=== PATIENT | male | born 1945 | race African-American/Black ===

== ENCOUNTER 2018-11-29 11:12 | Inpatient (IN) | payer MEDICARE, OTHER ==
[~2018-11-29] VITALS: Ht 188 cm; Wt 81.2 kg
[2018-11-29 12:40] LABS: BASOPHILS % 0.9 % (0.0-2.0); EOSINOPHILS % 3.3 % (0.0-5.0); HEMATOCRIT. 45.4 % (42.0-52.0); HEMOGLOBIN. 15.1 g/dL (14.0-18.0); LYMPHOCYTES % 23.7 % (20.0-50.0); MEAN CORPUSCULAR HEMOGLOBIN 31.4 pg (28.0-32.0); MEAN CORPUSCULAR VOLUME 94.6 fL (80.0-94.0); MEAN PLATELET VOLUME 7.6 fl (7.4-10.4); MONOCYTES % 9.8 % (2.0-8.0); NEUTROPHILS % 62.3 % (40.0-76.0); PLATELET 274 x1000/uL (130-400); RED CELL DISTRIBUTION WIDTH 14.2 % (11.6-14.6)
[2018-11-29 12:46] LABS: CHLORIDE 107 mEq/L (98-107)
[2018-11-29 12:49] LABS: INR 2.9; PARTIAL THROMBOPLASTIN TIME 42.1 sec (23.4-31.0); PROTHROMBIN TIME 28.4 sec (9.6-11.0)
[2018-11-29 12:50] LABS: ETHANOL BLOOD < 10 mg/dL
[2018-11-29] MEDS ORDERED: ONDANSETRON HCL 4MG/2ML INJ IV PRN (13:30)
[2018-11-29] MEDS ORDERED: NA PHOS,M-B/NA PHOS,DI-BA ENEMA 118ML PR PRN (13:30)
[2018-11-29] MEDS ORDERED: IPRATROPIUM/ALBUTEROL 0.5-3(2.5)MG/3ML NEB INH PRN (13:30)
[2018-11-29] MEDS ORDERED: ENOXAPARIN 40MG/0.4ML SYR SUBCUT SCH (13:30)
[2018-11-29] MEDS ORDERED: GUAIFENESIN 200MG/10ML SUGAR FREE UDC PO PRN (13:30)
[2018-11-29] MEDS ORDERED: CLONIDINE 0.1MG TABLET PO PRN (13:30)
[2018-11-29] MEDS ORDERED: ACETAMINOPHEN 325MG TABLET PO PRN (13:30)
[2018-11-29] MEDS ORDERED: MAGNESIUM/ALUMINUM HYDROXIDE/SIMETHICONE 30ML UDC PO PRN (13:30)
[2018-11-29] MEDS ORDERED: DOCUSATE SODIUM 100MG CAPSULE PO PRN (13:30)
[2018-11-29 16:17] VITALS: BP 129/78
[2018-11-29 16:18] VITALS: BP 130/78
[2018-11-29] MEDS: SODIUM CHLORIDE 0.45% 1,000 ML IV SCH (17:07)
[2018-11-29 19:14] LABS: CHLORIDE 106 mEq/L (98-107)
[2018-11-29 20:00] VITALS: BP 150/77
[2018-11-30] VITALS: BP 111/65
[2018-11-30 04:00] VITALS: BP 95/56
[2018-11-30 06:36] LABS: BASOPHILS % 0.5 % (0.0-2.0); HEMOGLOBIN. 13.9 g/dL (14.0-18.0); MEAN CORPUSCULAR HEMOGLOBIN 31.8 pg (28.0-32.0); MEAN CORPUSCULAR VOLUME 93.7 fL (80.0-94.0); MEAN PLATELET VOLUME 7.6 fl (7.4-10.4); NEUTROPHILS % 47.5 % (40.0-76.0); PLATELET 251 x1000/uL (130-400); RED BLOOD CELL COUNT 4.37 mill/uL (4.7-6.1); RED CELL DISTRIBUTION WIDTH 13.8 % (11.6-14.6)
[2018-11-30 06:55] LABS: CLARITY URINE CLEAR (CLEAR); COLOR URINE YELLOW (YELLOW); KETONES URINE NEGATIVE (NEGATIVE); LEUKOCYTE ESTERASE URINE NEGATIVE (NEGATIVE); NITRITE URINE NEGATIVE (NEGATIVE); OCCULT BLOOD URINE NEGATIVE (NEGATIVE); PH URINE 5.5 (4.5-8.0); PROTEIN URINE NEGATIVE (NEGATIVE); SPECIFIC GRAVITY URINE 1.023 (1.005-1.030)
[2018-11-30 07:28] LABS: *BENZODIAZEPINES SCREEN URINE NEGATIVE (NEGATIVE); *COCAINE SCREEN URINE NEGATIVE (NEGATIVE)
[2018-11-30 07:29] LABS: *AMPHETAMINES SCREEN URINE NEGATIVE (NEGATIVE); *BARBITURATES SCREEN URINE NEGATIVE (NEGATIVE); CANNABINOID URINE SCREEN NEGATIVE (NEGATIVE); METHADONE URINE SCREEN NEGATIVE (NEGATIVE); OPIATES URINE SCREEN NEGATIVE (NEGATIVE); PHENCYCLIDINE URINE SCREEN NEGATIVE (NEGATIVE)
[2018-11-30 08:00] VITALS: BP 107/65
[2018-11-30 12:20] VITALS: BP 95/52
[2018-11-30 15:32] VITALS: BP 102/57
[2018-11-30 15:45] LABS: INR 3.3; PROTHROMBIN TIME 32.3 sec (9.6-11.0)
[2018-11-30] MEDS: SODIUM CHLORIDE 0.45% 1,000 ML IV SCH (18:05)
[2018-11-30 20:00] VITALS: BP 126/76
[2018-11-30] MEDS: LORAZEPAM 2MG/ML CPJ IV PRN (20:58)
[2018-12-01] VITALS: BP 137/75
[2018-12-01 04:00] VITALS: BP 110/50
[2018-12-01 07:12] LABS: BASOPHILS % 0.5 % (0.0-2.0); EOSINOPHILS % 6.9 % (0.0-5.0); HEMATOCRIT. 41.9 % (42.0-52.0); HEMOGLOBIN. 14.1 g/dL (14.0-18.0); LYMPHOCYTES % 27.9 % (20.0-50.0); MEAN CORPUSCULAR HEMOGLOBIN 31.5 pg (28.0-32.0); MEAN CORPUSCULAR VOLUME 93.8 fL (80.0-94.0); MEAN PLATELET VOLUME 7.6 fl (7.4-10.4); MONOCYTES % 12.7 % (2.0-8.0); PLATELET 230 x1000/uL (130-400); RED BLOOD CELL COUNT 4.47 mill/uL (4.7-6.1); RED CELL DISTRIBUTION WIDTH 13.7 % (11.6-14.6)
[2018-12-01 07:18] LABS: INR 2.9; PROTHROMBIN TIME 28.1 sec (9.6-11.0)
[2018-12-01 07:26] LABS: CHLORIDE 105 mEq/L (98-107)
[2018-12-01 08:00] VITALS: BP 146/81
[2018-12-01 09:27] LABS: T4 FREE 0.86 ng/dL (0.76-1.46)
[2018-12-01] MEDS ORDERED: DORZ10DR9 EACHEYE (11:27)
[2018-12-01] MEDS ORDERED: DONE5TAB33 PO (11:27)
[2018-12-01] MEDS ORDERED: CRES10 MT (11:27)
[2018-12-01] MEDS ORDERED: LATA7.5D EACHEYE (11:27)
[2018-12-01] MEDS ORDERED: MEMA10TA19 MT (11:27)
[2018-12-01] MEDS ORDERED: WARF-53 MT (11:27)
[2018-12-01 12:00] VITALS: BP 160/76
[2018-12-01 16:00] VITALS: BP_SYST 123; BP_SYST 160; BP_DIAS 76; BP_DIAS 79
[2018-12-01 17:20] LABS: CREATINE KINASE 134 IU/L (39-308)
[2018-12-01 17:21] LABS: CREATINE KINASE MB FRACTION 1.4 ng/mL (0.5-3.6)
[2018-12-01] MEDS ORDERED: IOHEXOL-350 100 ML BOTTLE ONE (18:44)
[2018-12-01] MEDS: SODIUM CHLORIDE 0.45% 1,000 ML IV SCH (19:24)
[2018-12-01 20:00] VITALS: BP 115/81
[2018-12-01] MEDS: LORAZEPAM 2MG/ML CPJ IV PRN (20:26)
[2018-12-02] VITALS (7 sets, daily range): BP systolic 105–135; BP diastolic 53–75
[2018-12-02 00:23] LABS: CREATINE KINASE 156 IU/L (39-308)
[2018-12-02 00:24] LABS: CREATINE KINASE MB FRACTION 1.3 ng/mL (0.5-3.6)
[2018-12-02 07:47] LABS: CREATINE KINASE 154 IU/L (39-308); CREATINE KINASE MB FRACTION 1.2 ng/mL (0.5-3.6)
[2018-12-02] MEDS ORDERED: MEDICATION NOT ON FORMULARY EA (Rosuvastatin Calcium (Crestor) 1 TAB) MT SCH (09:00)
[2018-12-02] MEDS ORDERED: DONEPEZIL HCL 5MG TABLET PO SCH (09:00)
[2018-12-02] MEDS ORDERED: DORZOLAM/TIMOLOL 2.23/0.68% OPHTH DROPS 10ML EACHEYE SCH (10:00)
[2018-12-02] MEDS: MEMANTINE HCL 5MG TABLET PO SCH ×2 (10:04→16:49)
[2018-12-02 13:14] LABS: INR 1.8; PROTHROMBIN TIME 18.3 sec (9.6-11.0)
[2018-12-02] MEDS: SODIUM CHLORIDE 0.45% 1,000 ML IV SCH (16:49)
[2018-12-02] MEDS ORDERED: WARFARIN SODIUM 2MG TABLET PO SCH (18:00)
[2018-12-02] MEDS ORDERED: LATANOPROST 0.005% OPHTH DROPS 2.5ML EACHEYE SCH (21:00)
[2018-12-02] MEDS ORDERED: ATORVASTATIN CALCIUM 20MG TABLET PO SCH (21:00)
== END 2018-12-02 19:30 | DRG 640 ==
LOC: ER 12:05 → 5WST 13:09 → EDBEDREQ 13:12 → CANRESERV 14:04 → ENRESERV 14:04 → 5WST 22:13
PROVIDERS: ADMIT Internal Medicine; ATTEND Internal Medicine
DX: E86.0 Dehydration (principal); G92 Toxic encephalopathy; D68.9 Coagulation defect, unspecified; E11.9 Type 2 diabetes mellitus without complications; E78.5 Hyperlipidemia, unspecified; F03.90 Unspecified dementia, unspecified severity, without behavioral disturbance, psychotic disturbance, mood disturbance, and anxiety; I10 Essential (primary) hypertension; Z59.0 Homelessness; Z79.01 Long term (current) use of anticoagulants; Z79.899 Other long term (current) drug therapy; Z87.891 Personal history of nicotine dependence
CPT/HCPCS: 36415; 71045; 71275; 73030; 80048; 80061; 80305; 80320; 82550; 82553; 83036; 83605; 83880; 84145; 84439; 84443; 84484; 85379; 93005; 93306; 93970; 99285; C1893; J2060; Q9967; G0480